=== PATIENT | female | born 1975 | race Caucasian/White ===

== ENCOUNTER 2017-08-30 10:03 | Emergency (ER) | payer BC, OTHER ==
[2017-08-30 10:55] LABS: ABS Basophils 0.1 10^3/ul (0-0.2); ABS Eosinophils 0.2 10^3/ul (0-0.6); ABS Lymphocytes 1.9 10^3/ul (1.0-4.8); ABS Monocytes 0.5 10^3/ul (0-0.8); ABS Neutrophils 7.6 10^3/ul (1.5-7.7); ABS Nucleated RBC 0 10^3/ul; Eosinophil % 1.7 % (0-6); Hematocrit 41 % (35-47); Hemoglobin 13.8 g/dl (12.0-16.0); Lymphocyte % 18.9 % (25-47); Mean Corpuscular HGB Conc 34 g/dl (31-36); Mean Corpuscular Hemoglobin 29 pg (27-31); Mean Corpuscular Volume 86 fL (80-97); Mean Platelet Volume 7 um3 (7.4-10.4); Nucleated Red Blood Cells % 0; Platelet Count 331 10^3/ul (150-450); Red Cell Distribution Width 14 % (10.5-15); White Blood Count 10.3 10^3/ul (3.5-10.8)
[2017-08-30 11:11] LABS: EGFR Non-African American 91.2 (>60)
--- NOTE | 2017-08-30 11:13 | ED ---
Skin Complaint - HPI Summary HPI Summary: 41 female presents to ED with complaints of right breast tenderness, swelling, induration and a slight redness that began this morning. Patient has been dealing with "clogged ducts" mastitis for a while and on and off. Is on her 7th day of dicloxacillin, it is a 10 day supply. She has also been massaging, draining, pumping and applying warm compresses daily. 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 Was doing well until last night when she slept for 7 hours and did not pump. States it always tends to be the right breast. No other PMHx. Has history of mastitis. No other complaints at this time. Denies fever. Does admit to some some mild body aches and chills however no known fever. Did try to pump and breast feed however was unsuccessful , only able to most recently get 1 ounce of milk compared to the left breast obtaining 4 ounces. Patient also admits to a blood discharge when squeezing. Dr Anne is patient's primary OBGYN. Called office and was told to come here to rule out abscess. - History of Current Complaint Chief Complaint: EDOBProblems Time Seen by Provider: 08/30/17 10:23 Stated Complaint: R/O BREAST ABSCESS Hx Obtained From: Patient Onset/Duration: Started Hours Ago - most recent symptoms, Started Days Ago - initial mastitis, Still Present, Worse Since Skin Exposure Onset/Duration: Hours Ago, Days Ago Timing: Constant Onset Severity: Mild Current Severity: Moderate Pain Intensity: 4 Pain Scale Used: 0-10 Numeric Skin Location: Discrete - right superior breast, Nose Character: Swelling, Pain, Redness - mild, Raised - indurated/firm Aggravating Symptom(s): Touch Alleviating Symptom(s): Treatment NETWORK ANALYST: - dicloxacillin, massaging, warm compresses, pumping, hanging Associated Signs & Symptoms: Nausea - decreased appetite, Chills - Allergy/Home Medications Allergies/Adverse Reactions: Allergies Allergy/AdvReac Type Severity Reaction Status Date / Time No Known Allergies Allergy Verified 08/30/17 10:09 PMH/Surg Hx/FS Hx/Imm Hx Endocrine/Hematology History: Denies: Hx Diabetes Cardiovascular History: Denies: Hx Hypertension Respiratory History: Denies: Hx Asthma - Surgical History Surgery Procedure, Year, and Place: n/a - Immunization History Immunizations Up to Date: Yes Infectious Disease History: No Infectious Disease History: Denies: Traveled Outside the [place] in Last 30 Days - Family History Known Family History: Positive: None - Social History Alcohol Use: None Substance Use Type: Reports: None Smoking Status (MU): Never Smoked Tobacco Review of Systems Positive: Chills Cardiovascular: Negative Respiratory: Negative Positive: Nausea - decreased appetite Positive: Myalgia Positive: Other - right breast infection swelling, induration and pain All Other Systems Reviewed And Are Negative: Yes Physical Exam Triage Information Reviewed: Yes Vital Signs On Initial Exam: Initial Vitals Temp Pulse Resp BP Pulse Ox 97.3 F 75 16 111/56 97 08/30/17 10:10 08/30/17 10:10 08/30/17 10:10 08/30/17 10:10 08/30/17 10:10 Vital Signs Reviewed: Yes Appearance: Positive: Well-Appearing, No Pain Distress, Well-Nourished Skin: Positive: Warm, Skin Color Reflects Adequate Perfusion, Dry, Erythema @ - mild over anterior superior right breat, indurated and firm to touch, no fluctuance and no discharge upon exam , TTP rest of right breast and left breast normal on palpation and without tenderness. Negative: Cold, Cyanosis @ Eyes: Positive: Conjunctiva Clear ENT: Positive: Hearing grossly normal Neck: Positive: Supple, Nontender Respiratory/Lung Sounds: Positive: Clear to Auscultation, Breath Sounds Present. Negative: Rales, Rhonchi, Wheezes Cardiovascular: Positive: Normal, RRR, Pulses are Symmetrical in both Upper and Lower Extremities. Negative: Murmur, Rub Musculoskeletal: Positive: Normal, Strength/ROM Intact Neurological: Positive: Normal, Sensory/Motor Intact, Alert, Oriented to Person Place, Time Diagnostics - Vital Signs Vital Signs Temp Pulse Resp BP Pulse Ox 08/30/17 10:10 97.3 F 75 16 111/56 97 - Laboratory Lab Results: Lab Results 08/30/17 08/30/17 08/30/17 Range/Units 10:48 10:48 10:48 WBC 10.3 (3.5-10.8) 10^3/ul RBC 4.80 (4.0-5.4) 10^6/ul Hgb 13.8 (12.0-16.0) g/dl Hct 41 (35-47) % MCV 86 (80-97) fL MCH 29 (27-31) pg MCHC 34 (31-36) g/dl RDW 14 (10.5-15) % Plt Count 331 (150-450) 10^3/ul MPV 7 L (7.4-10.4) um3 Neut % (Auto) 73.6 (38-83) % Lymph % (Auto) 18.9 L (25-47) % [place] % (Auto) 5.3 (0-7) % Eos % (Auto) 1.7 (0-6) % Baso % (Auto) 0.5 (0-2) % Absolute Neuts (auto) 7.6 (1.5-7.7) 10^3/ul Absolute Lymphs (auto) 1.9 (1.0-4.8) 10^3/ul Absolute Monos (auto) 0.5 (0-0.8) 10^3/ul Absolute Eos (auto) 0.2 (0-0.6) 10^3/ul Absolute Basos (auto) 0.1 (0-0.2) 10^3/ul Absolute Nucleated RBC 0 10^3/ul Nucleated RBC % 0 Sodium 136 (133-145) mmol/L Potassium 4.1 (3.5-5.0) mmol/L Chloride 104 (101-111) mmol/L Carbon Dioxide 28 (22-32) mmol/L Anion Gap 4 (2-11) mmol/L BUN 12 (6-24) mg/dL Creatinine 0.71 (0.51-0.95) mg/dL Est GFR ( Amer) 117.3 (>60) Est GFR (Non-Af Amer) 91.2 (>60) BUN/Creatinine Ratio 16.9 (8-20) Glucose 94 (70-100) mg/dL Lactic Acid 0.7 (0.5-2.0) mmol/L Calcium 9.8 (8.6-10.3) mg/dL Total Bilirubin 0.50 (0.2-1.0) mg/dL AST 20 (13-39) U/L ALT 20 (7-52) U/L Alkaline Phosphatase 84 (34-104) U/L Total Protein 7.2 (6.4-8.9) g/dL Albumin 4.4 (3.2-5.2) g/dL Globulin 2.8 (2-4) g/dL Albumin/Globulin Ratio 1.6 (1-3) Result Diagrams: 08/30/17 10:48 08/30/17 10:48 Lab Statement: Any lab studies that have been ordered have been reviewed, and results considered in the medical decision making process. - Ultrasound No standard instances Ultrasound Interpretation: Positive (See Comments) - Sonographic findings are consistent with edematous changes involving the upper midline portion of the right breast without drainable fluid collection or visibly dilated ducts. 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 given copies of labs and us report. Second Eval Re-Evaluation Time: 13:48 Change: Unchanged - updated on plan and patient agrees, updated on speaking wtih Dr Sloan. patient attempted pumping and again only got 1 ounce Course/Dx - Course Course Of Treatment: labs obtained and unremarkable without signs of infection, negative lactic. normal vitals and afebrile. no known MRSA history. ultrasound obtained and showed edematous changes without drainable fluid collection. spoke with Dr Sloan who agreed to possibly try and change antbiotic to broader coverage with augmentin, discontinue dicloxacin. continue intermittent massage and cabbage leaves, pumping. ice in between and refrain from excessive manipulation. follow up in office. aware of worsening signs and symptoms to watch out for and return if occur. - Differential Diagnoses - Skin Complaint Differential Diagnoses: Abscess, MRSA, Other - mastitis, edematous breast ducts - Diagnoses Provider Diagnoses: Mastitis, Pain of breast during Discharge - Discharge Plan Condition: Good Disposition: HOME Prescriptions: Amoxicillin/Clavulanate TAB* [Augmentin TAB 875*] 875 mg PO BID #20 tab Patient Education Materials: Mastitis (ED) Referrals: Brad Anne MD [Medical Doctor] - Additional Instructions: Continue taking ibuprofen for pain and inflammation. Continue massage, and breast pumping. Try green cabbage leaves intermittently throughout the day but not too long or it will dry up milk completely. Discontinue dicloxacillin and take augmentin. call and make an appointment on friday morning to follow up in office for re- evaluation. any new or worsening symptoms please seek medical attention, and return to ED.
[2017-08-30] MEDS ORDERED: Ibuprofen TAB* 600 MG PO ONE (11:32)
--- NOTE | 2017-08-30 13:15 | RAD ---
INDICATION: Right upper breast erythema and pain in a breast-feeding woman COMPARISON: None TECHNIQUE: Real time ultrasound images of the right upper breast were acquired with randall scale and Doppler color flow imaging. FINDINGS: Sonographic imaging of the right breast approximately between the 11:00 and 1:00 positions was obtained according to the location of the patient's erythema and pain. There is a mild degree of subcutaneous infiltration as well as increased heterogeneity and hypoechogenicity of the fatty breast tissue consistent with edema. There is no drainable fluid collection. There are no large dilated ducts visualized. IMPRESSION: Sonographic findings are consistent with edematous changes involving the upper midline portion of the right breast without drainable fluid collection or visibly dilated ducts.
[2017-08-30] MEDS ORDERED: Amoxicillin/Clavulanate TAB* 875 MG PO ONE (13:45)
[2017-08-30 14:13] VITALS: BP 115/71
== END 2017-08-30 14:11 | disposition home or self-care (01) ==
LOC: ED 10:03
DX: N61.0 Mastitis without abscess (principal); Z39.1 Encounter for care and examination of lactating mother
CPT/HCPCS: 36415; 80053; 83605; 85025; 99282; A9270-GY

== ENCOUNTER 2019-04-13 17:17 | Observation (INO) | payer BC ==
[2019-04-13] MEDS: Lactated Ringers 1000 ML Bag* 1,000 ML IV SCH ×2 (17:56→22:01)
[2019-04-13 18:18] LABS: Platelet Count 347 10^3/ul (150-450)
[2019-04-13 18:25] LABS: ABS Eosinophils 0.2 10^3/ul (0-0.6); ABS Lymphocytes 2.9 10^3/ul (1.0-4.8); ABS Neutrophils 10.2 10^3/ul (1.5-7.7); Eosinophil % 1.3 %; Hematocrit 33 % (35-47); Hemoglobin 11.1 g/dL (12.0-16.0); Lymphocyte % 20.1 %; Mean Corpuscular HGB Conc 34 g/dL (31-36); Mean Corpuscular Hemoglobin 29 pg (27-31); Mean Corpuscular Volume 87 fL (80-97); Mean Platelet Volume 7.4 fL (7.4-10.4); Platelet Count 352 10^3/uL (150-450); Red Blood Count 3.78 10^6 /uL (3.70-4.87); Red Cell Distribution Width 13 % (10-15); White Blood Count 14.2 10^3/uL (3.5-10.8)
[2019-04-13 18:27] LABS: Activated Partial Thrombo Time 27.2 seconds (26.0-38.0); Fibrinogen 485.3 mg/dL (110.8-404.3); INR 0.83 (0.82-1.09)
[2019-04-13 18:37] LABS: Albumin 3.4 g/dL (3.2-5.2); Albumin/Globulin Ratio 1.2 (1-3); BUN/Creatinine Ratio 14.5 (8-20); Calcium 8.6 mg/dL (8.6-10.3); EGFR African American 146.7 (>60); EGFR Non-African American 121.2 (>60); Globulin 2.9 g/dL (2-4); Total Bilirubin 0.3 mg/dL (0.2-1.0); Total Protein 6.3 g/dL (6.4-8.9)
[2019-04-13 18:40] LABS: Schistocytes ABSENT
[2019-04-13] MEDS ORDERED: Betamethasone INJ* 6 MG/ML 5 ML VIAL (30 MG) IM SCH (19:00)
[2019-04-13 21:00] LABS: Urine Appearance Clear; Urine Bacteria Absent (Absent); Urine Bilirubin Negative (Negative); Urine Blood 3+ (Negative); Urine Glucose Negative (Negative); Urine Ketones Negative (Negative); Urine Nitrite Negative (Negative); Urine Protein 2+(100 mg/dL) (Negative); Urine Red Blood Cell 3+(>10/hpf) (Absent); Urine Specific Gravity 1.005 (1.010-1.030); Urine Squamous Epithelial Cell Present (Absent); Urine Urobilinogen Negative (Negative); Urine White Blood Cell Trace(0-5/hpf) (Absent)
[2019-04-13 21:01] LABS: Urine Color Yellow
--- NOTE | 2019-04-13 21:29 | HP ---
General Information - Reason for Visit Patient with a at 29 6/7 weeks EGA. Experienced a spontaneous episode of painless vaginal bleeding and fluid at 4pm today. Initially she felt it was urine that she was passing, however, this lasted for over 2 minutes. - General Information Maternal Age: 43 Grav: 2 Para: 1 SAB: 0 IEA: 0 Estimated Due Date: 06/25/19 Determined By: LMP Gestational Age in Weeks/Days: 29 6/7 Maternal Blood Type and Rh: O Positive - Results this Serology/RPR Result: Non-Reactive Rubella Result: Immune HBsAg Result: Negative HIV Result: Negative Past Medical History Delivery History: See Records - 1 ful term complicated by shoulder dystocia Pertinent Past Medical History: See Records Pertinent Past Surgical History: See Records Past Surgical History Comment: Laparoscopic appendectomy 2010 Uterine polypectomy 2015 Partial spincterotomy Pertinent Family History: See Records - Antepartal Records Antepartal Records: Reviewed, Complicated by: - AMA, IVF Review of Systems Constitutional: Uncomfortable CV Complaint: No Respiratory: Shortness of Breath: No Gastrointestinal: No Nausea/Vomiting, Normal Bowel Movement Genitourinary: Bleeding - questionable leaking, ROM plus pending, No Dysuria Musculoskeletal: No Complaint, No Epigastric Pain, Contractions - mild, Q 5 minutes apart Neurological: No Headache, No Visual Changes Movement: Normal Exam Allergies/Adverse Reactions: Allergies No Known Allergies Allergy (Verified 07/27/18 12:36) Temp 98.1 BP 127/58 P 86 RR 18 POx 100% rA Lab Values - Entire Visit: Laboratory Tests 04/13/19 04/13/19 04/13/19 17:56 17:56 17:56 WBC 14.2 H RBC 3.78 Hgb 11.1 L Hct 33 L MCV 87 MCH 29 MCHC 34 RDW 13 Plt Count 352 347 MPV 7.4 Neut % (Auto) 71.5 Lymph % (Auto) 20.1 [place] % (Auto) 6.8 Eos % (Auto) 1.3 Baso % (Auto) 0.3 Absolute Neuts (auto) 10.2 H Absolute Lymphs (auto) 2.9 Absolute Monos (auto) 1.0 H Absolute Eos (auto) 0.2 Absolute Basos (auto) 0.0 Absolute Nucleated RBC 0.0 Nucleated RBC % 0.0 Schistocytes Absent INR (Anticoag Therapy) 0.83 APTT 27.2 Fibrinogen 485.3 H D-Dimer, Quantitative 437 H Sodium 134 L Potassium 4.0 Chloride 107 Carbon Dioxide 21 L Anion Gap 6 BUN 8 Creatinine 0.55 Est GFR ( Amer) 146.7 Est GFR (Non-Af Amer) 121.2 BUN/Creatinine Ratio 14.5 Glucose 110 H Calcium 8.6 Total Bilirubin 0.30 AST 15 ALT 11 Alkaline Phosphatase 78 Total Protein 6.3 L Albumin 3.4 Globulin 2.9 Albumin/Globulin Ratio 1.2 Urine Color Urine Appearance Urine pH Ur Specific [place] Urine Protein Urine Ketones Urine Blood Urine Nitrate Urine Bilirubin Urine Urobilinogen Ur Leukocyte Esterase Urine WBC (Auto) Urine RBC (Auto) Ur Squamous Epith Cells Urine Bacteria Urine Glucose Blood Type Antibody Screen KB Hemoglobin 04/13/19 04/13/19 17:56 20:18 WBC RBC Hgb Hct MCV MCH MCHC RDW Plt Count MPV Neut % (Auto) Lymph % (Auto) [place] % (Auto) Eos % (Auto) Baso % (Auto) Absolute Neuts (auto) Absolute Lymphs (auto) Absolute Monos (auto) Absolute Eos (auto) Absolute Basos (auto) Absolute Nucleated RBC Nucleated RBC % Schistocytes INR (Anticoag Therapy) APTT Fibrinogen D-Dimer, Quantitative Sodium Potassium Chloride Carbon Dioxide Anion Gap BUN Creatinine Est GFR ( Amer) Est GFR (Non-Af Amer) BUN/Creatinine Ratio Glucose Calcium Total Bilirubin AST ALT Alkaline Phosphatase Total Protein Albumin Globulin Albumin/Globulin Ratio Urine Color Yellow Urine Appearance Clear Urine pH 9.0 Ur Specific [place] 1.005 L Urine Protein 2+(100 mg/dl) A Urine Ketones Negative Urine Blood 3+ A Urine Nitrate Negative Urine Bilirubin Negative Urine Urobilinogen Negative Ur Leukocyte Esterase 1+ A Urine WBC (Auto) Trace(0-5/hpf) Urine RBC (Auto) 3+(>10/hpf) A Ur Squamous Epith Cells Present A Urine Bacteria Absent Urine Glucose Negative Blood Type O Positive Antibody Screen Negative KB Hemoglobin 0 Patient Name: ZEESHAN ZAZUETA Medical Record#: [id number] Ordering Physician: Fabiola Cardenas MD Acct.#: [id number] : 1975 Age: 43 Sex: F Location: [facility] - [facility]ST[facility] OUTPATIENT Exam Date: 04/13/19 172 ADM Status: REG REF Order Information: US PREG LIMITED Accession Number: [id number] CPT: 12431 PROCEDURE INFORMATION: Exam: US , Limited Exam date and time: 04/13/2019 5:55 PM Clinical history: 43 years old, female; Lmp or gestational age (in weeks): 29w 4d; Other: Bleeding; ; Additional info: Bleeding 29 weeks TECHNIQUE: Imaging protocol: Real-time ultrasound of the maternal uterus with image documentation. Exam focused on the clinical indication. COMPARISON: XA HYSTERO HYSTEROSALPINGOGRAM XR 06/04/2018 1:33 PM FINDINGS: There is a single live fetus of 31 weeks in transverse presentation. Placenta is anterior and not low-lying. Lower edge is 6 cm from the os. Amniotic fluid is adequate with an index of 20 cm. Cervix measures 3.9 cm. Heart rate is 143 bpm. Biometry: BPD: 7.8 cm - 31 weeks and 2 days Head circumference: 28.2 cm - 31 weeks and 0 days Abdominal circumference: 27.7 cm - 31 weeks and 6 days Femur length: 6.1 cm - 31 weeks and 6 days Mean age by ultrasound: 31 weeks and 4 days CECILIA by today's study : 06/11/2019 CECILIA by LMP: 06/25/2019 EFW: 1806 gms +/- 264 gms the 96th percentile. IMPRESSION: 1. Single live fetus of 31 weeks and 4 days in transverse presentation. 2. Anterior presentation not low-lying. Cervix is closed. 3. Amniotic fluid is adequate with an index of [address] [facility] with a general question: [facility] - [phone] For direct physician to physician contact: Physician Hotline - [phone] [facility] ([facility] Facility ID #[id number]) <Electronically signed by Suki Bonner MD in OV> 04/13/19 6143 Dictated By: Suki Bonner MD Dictated Date/Time: 04/13/191754 Transcribed Date/Time: 04/13/191754 Copy to: This report is only to be considered final once signed by the Provider(s) as displayed in the "<Electronically Signed by >" field (s). Absence of a signature indicates the report is in a draft status and still needs to be finalized. In the event this document was created by someone other than the signing Provider, the individual initiating the document will be listed in the "Entered by:" or "Dictated by:" robledo. 1 of 2 - Measurements Height: 5 ft 2.5 in Weight: 174 lb Weight in lbs: 174.942258 Body Mass Index (BMI): 31.3 Pre- Weight: 152 lb Weight Gained This : 22 lbs and 0 ozs - Exam Breast: Breast Exam Deferred CVA: No CVA Tenderness Extremities: No Edema Heart: Normal Rhythm/Heart Sounds HEENT: No Significant Findings Lungs: Clear Bilaterally Rectal: Rectal Exam Deferred Reflexes: DTR 2+ Thyroid: No Thyromegaly - Abdominal Exam Abdomen Exam: Non-Tender, Fundal Height Consistent with Dates - Ultrasound/Biophysical Profile Ultrasound Status: Radiology Department Full Exam Biophysical Profile: Normal Reactive NST Targeted Exam Findings See L&D Outpatient Visit Provider Note for Findings: N/A Cervical Exam: Closed - Closed on transvaginal ultrasound Presenting Part: Transverse Membrane Status: SROM - ROM plus positive Amniotic Fluid Evaluation: Positive ROM Plus Bleeding/Discharge: Bloody Show EFM Findings - External Monitor Findings Baseline Heart Rate: 140 External Monitor Findings: Accelerations Present Contractions: Regular - Q 5 minutes Assessment/Plan - Assessment at 29 6/7 weeks with ruptured membranes. - Obstetrical Risk Factors Obstetrical Risk Factors: GBS Unknown, - Plan Plan: Antibiotic Prophylaxis, Steroids, Mag Sulfate, Transfer to Tertiary Center - Date/Time of Admission Date of Admission: 04/13/19 Time of Admission: 07:25
[2019-04-13] MEDS ORDERED: Azithromycin TAB* 250 MG PO ONE (21:41)
[2019-04-13] MEDS ORDERED: Magnesium Sulfate OB PREMIX* 40 GM/1,000 ML BAG ONE (21:50)
[2019-04-13] MEDS ORDERED: Ampicillin ADVAN(*) 2 GM in NS 0.9% 100 ML* 100 ML IVPB SCH (22:00)
[2019-04-13] MEDS ORDERED: Magnesium Sulf 4 GM/100 ML IV* 4,000 MG/100 ML BAG IVPB ONE (22:00)
[2019-04-13] MEDS ORDERED: NS 0.9% 100 ML* 0 ML ONE (22:08)
[2019-04-13] MEDS ORDERED: Magnesium Sulfate OB PREMIX* 40 GM/1,000 ML BAG IV SCH (23:00)
== END 2019-04-13 23:55 | disposition short-term general hospital (02) ==
LOC: MCHOBOUT 17:17 → MCHOB 19:22
PROVIDERS: ADMIT Obstetrics & Gynecology; ATTEND Obstetrics & Gynecology
DX: O42.913 Preterm premature rupture of membranes, unspecified as to length of time between rupture and onset of labor, third trimester (principal); Z3A.29 29 weeks gestation of pregnancy; O46.93 Antepartum hemorrhage, unspecified, third trimester; Z79.899 Other long term (current) drug therapy
CPT/HCPCS: 36415; 76815; 80053; 81003; 81015; 83030; 84112; 85025; 85049; 85362; 85384; 85610; 85730; 86850; 86900; 86901; 87070; 87086; 96365; 96375; A9270-GY; G0378; J0702

== ENCOUNTER 2019-06-11 09:19 | Inpatient (IN) | payer BC ==
[2019-06-11] MEDS ORDERED: Buffered Lidocaine 1% SYRIN* 1 ML/SYRINGE INTRADERM ONE (09:53)
[2019-06-11] MEDS ORDERED: Lactated Ringers 1000 ML Bag* 1,000 ML IV ONE ×2 (09:53→19:04)
--- NOTE | 2019-06-11 09:57 | HP ---
General Information - Reason for Visit atypical preeclampsia - General Information Maternal Age: 43 Grav: 2 Para: 1 SAB: 0 IEA: 0 Estimated Due Date: 06/23/19 Determined By: LMP Maternal Blood Type and Rh: O Positive - Results this Serology/RPR Result: Non-Reactive Rubella Result: Immune HBsAg Result: Negative HIV Result: Negative GBS Culture Result: Negative Past Medical History Delivery History: See Records Pertinent Past Medical History: See Records Pertinent Past Surgical History: See Records Pertinent Family History: See Records - Antepartal Records Antepartal Records: Reviewed, Complicated by: - abruption Prom at 29 weeks/ resealed / atypical preeclampsia Review of Systems Constitutional: Comfortable CV Complaint: No Respiratory: Shortness of Breath: No Gastrointestinal: No Nausea/Vomiting Genitourinary: No Dysuria, No Bleeding, No Leaking Fluid Musculoskeletal: No Complaint Neurological: No Headache, No Visual Changes Movement: Normal Exam Allergies/Adverse Reactions: Allergies No Known Allergies Allergy (Verified 07/27/18 12:36) BP 114/70 - Measurements Height: 5 ft 2 in Weight: 182 lb Weight in lbs: 182.743496 Body Mass Index (BMI): 33.3 Pre- Weight: 152 lb Weight Gained This : 30 lbs and 0 ozs - Exam Breast: Breast Exam Deferred CVA: No CVA Tenderness Extremities: No Edema Heart: Normal Rhythm/Heart Sounds HEENT: No Significant Findings Lungs: Clear Bilaterally Rectal: Rectal Exam Deferred Reflexes: DTR 2+ Thyroid: No Thyromegaly - Abdominal Exam Abdomen Exam: Non-Tender - Ultrasound/Biophysical Profile Ultrasound Status: Not Done Targeted Exam Findings Cervical Exam: 2cm Effacement: 80% Station: -1 Presenting Part: Vertex Membrane Status: Intact EFM Findings - External Monitor Findings Baseline Heart Rate: 140 External Monitor Findings: Accelerations Present, No Pattern of Variable or Late Decelerations, Variability Moderate Contractions: None Assessment/Plan - Obstetrical Risk Factors Obstetrical Risk Factors: PreEclampsia - Plan Plan: Induction, Admit - Anticipate Vaginal Delivery
[2019-06-11] MEDS ORDERED: Lactated Ringers 1000 ML Bag* 1,000 ML IV SCH ×3 (10:00→22:00)
[2019-06-11] MEDS ORDERED: Oxytocin in LR* 20 UNITS/1,000 ML BAG IVPB SCH ×2 (10:00→22:00)
[2019-06-11 10:12] LABS: ABS Eosinophils 0.1 10^3/ul (0-0.6); ABS Lymphocytes 1.5 10^3/ul (1.0-4.8); ABS Monocytes 0.9 10^3/ul (0-0.8); ABS Neutrophils 11.4 10^3/ul (1.5-7.7); Eosinophil % 0.6 %; Hematocrit 31 % (35-47); Hemoglobin 10.6 g/dL (12.0-16.0); Lymphocyte % 10.8 %; Mean Corpuscular HGB Conc 34 g/dL (31-36); Mean Corpuscular Hemoglobin 29 pg (27-31); Mean Corpuscular Volume 85 fL (80-97); Mean Platelet Volume 7.4 fL (7.4-10.4); Platelet Count 315 10^3/uL (150-450); Red Blood Count 3.64 10^6 /uL (3.70-4.87); Red Cell Distribution Width 15 % (10-15); White Blood Count 13.9 10^3/uL (3.5-10.8)
[2019-06-11 10:30] LABS: Urine Benzodiazepine Screen None Detected (None Detect); Urine Opiates Screen None Detected (None Detect)
[2019-06-11] MEDS ORDERED: OBEPIDURAL* 250 ML EPIDURAL ONE (18:36)
[2019-06-11] MEDS ORDERED: Famotidine TAB* 20 MG PO PRN (19:04)
[2019-06-11] MEDS ORDERED: Sodium Citrate/Citric Acid* 15 ML UDC PO PRN (19:04)
[2019-06-11] MEDS ORDERED: Phenylephrine 40 MCG/ML SYRINGE IV PUSH PRN ×2 (19:04)
[2019-06-11] MEDS ORDERED: OBEPIDURAL* 250 ML EPIDURAL SCH (20:00)
[2019-06-11] MEDS: Albuterol HFA INHALER* 8 gm MDI INH PRN (21:02)
[2019-06-11] MEDS ORDERED: Glycerin ADULT SUPP PR PRN (21:40)
[2019-06-11] MEDS ORDERED: Acetaminophen TAB* 325 MG PO PRN (21:40)
[2019-06-11] MEDS ORDERED: Witch Hazel PAD* JAR TOPICAL PRN (21:40)
[2019-06-11] MEDS ORDERED: Dibucaine 1% 28.35 GM TUBE PR PRN (21:40)
[2019-06-11] MEDS ORDERED: Ibuprofen TAB* 600 MG PO PRN (21:40)
--- NOTE | 2019-06-11 21:54 | PROCNOTE ---
[facility] OB: Delivery Note - Delivery A Date of : 06/11/19 Time of : 21:08 [place] Sex: Male Score 1 Minute: 9 Score 5 Minutes: 9 Gestational Age in Weeks and Days at Delivery: 38 Weeks and 2 Days Delivery Method: Spontaneous Vaginal Labor: Induced Did Patient attempt ?: N/A, No Previous Amniotic Fluid: Clear Estimated Blood Loss: 300 Anesthesia/Analgesia: CEI for Labor Anesthesia Comment: Dr Nery Lou Delivered By: Fabiola Cardenas - Nursery Level of Nursery: Regular/Bedside - Perineum Perineal Injury: 2nd Degree Perineal Injury Comment: repair standard technique 2.0 vicryl X 2 / 3.0 vicryl x1 Perineal Repair: By Delivering Practioner - Events Delivery Events of Note: Pitocin During Labor, Supplemental O2 to Mother
[2019-06-11] MEDS: Ibuprofen TAB* 600 MG PO PRN (22:41)
[2019-06-12] MEDS ORDERED: Lidocaine 1% INJ* 10 MG/ML 30 ML SDV ONE (00:28)
[2019-06-12] MEDS: Ibuprofen TAB* 600 MG PO PRN ×4 (03:48→21:02)
[2019-06-12] MEDS ORDERED: Benzocaine/Menthol LOZ* 1 LOZENGE PO PRN (03:59)
[2019-06-12] MEDS: Albuterol HFA INHALER* 8 gm MDI INH PRN (04:03)
[2019-06-12 06:45] LABS: ABS Eosinophils 0.1 10^3/ul (0-0.6); ABS Lymphocytes 1.9 10^3/ul (1.0-4.8); ABS Monocytes 0.9 10^3/ul (0-0.8); ABS Neutrophils 9.1 10^3/ul (1.5-7.7); Eosinophil % 0.5 %; Hematocrit 27 % (35-47); Hemoglobin 9.1 g/dL (12.0-16.0); Lymphocyte % 16.1 %; Mean Corpuscular HGB Conc 34 g/dL (31-36); Mean Corpuscular Hemoglobin 29 pg (27-31); Mean Corpuscular Volume 85 fL (80-97); Mean Platelet Volume 7.2 fL (7.4-10.4); Platelet Count 267 10^3/uL (150-450); Red Blood Count 3.19 10^6 /uL (3.70-4.87); Red Cell Distribution Width 15 % (10-15); White Blood Count 12.1 10^3/uL (3.5-10.8)
[2019-06-12] MEDS ORDERED: Simethicone TAB* 80 MG TAB.CHEW PO SCH (08:30)
[2019-06-12] MEDS: Docusate CAP* 100 MG PO SCH ×3 (09:15→21:02)
[2019-06-12] MEDS: Ferrous Gluconate TAB* 324 MG TAB PO SCH ×2 (09:15→21:02)
[2019-06-12] MEDS: Pantoprazole TAB * 40 MG TAB PO SCH (09:15)
[2019-06-12] MEDS: PRENATAL VITAMIN PO SCH (15:02)
[2019-06-13] MEDS: Ibuprofen TAB* 600 MG PO PRN ×2 (04:09→10:16)
[2019-06-13 08:08] VITALS: BP 120/70
[2019-06-13] MEDS: Ferrous Gluconate TAB* 324 MG TAB PO SCH (10:21)
[2019-06-13] MEDS: Docusate CAP* 100 MG PO SCH (10:21)
[2019-06-13] MEDS: Pantoprazole TAB * 40 MG TAB PO SCH (10:21)
[2019-06-13] MEDS: PRENATAL VITAMIN PO SCH (12:50)
== END 2019-06-13 13:35 | disposition home or self-care (01) | DRG 560 ==
LOC: MCHOBOUT 09:19 → MCHOB 09:54
PROVIDERS: ADMIT Obstetrics & Gynecology; ATTEND Obstetrics & Gynecology
PROC: 10E0XZZ Delivery of Products of Conception, External Approach (ICD-10-PCS; principal; 2019-06-11)
PROC: 3E033VJ Introduction of Other Hormone into Peripheral Vein, Percutaneous Approach (ICD-10-PCS; 2019-06-11)
PROC: 10907ZC Drainage of Amniotic Fluid, Therapeutic from Products of Conception, Via Natural or Artificial Opening (ICD-10-PCS; 2019-06-11)
PROC: 0KQM0ZZ Repair Perineum Muscle, Open Approach (ICD-10-PCS; 2019-06-11)
DX: O14.94 Unspecified pre-eclampsia, complicating childbirth (principal); Z37.0 Single live birth; O70.1 Second degree perineal laceration during delivery; O90.81 Anemia of the puerperium; D64.9 Anemia, unspecified; Z3A.38 38 weeks gestation of pregnancy
CPT/HCPCS: 36415; 80307; 85025; 86850; 86900; 86901; A9270-GY